=== PATIENT | male | born 1985 | race African-American/Black ===

== ENCOUNTER 2017-01-24 15:45 | Emergency (ER) | payer OTHER ==
[~2017-01-24] VITALS: Ht 172.7 cm; Wt 92.2 kg
[~2017-01-24 15:45] MED LIST: FLEXERIL10 MG PO; NAPROSYN500 MG PO
[2017-01-24 17:40] LABS: EOSINOPHIL (%) 3.2 % (0-5); EOSINOPHIL COUNT 0.2 K/uL (0-0.3); HEMATOCRIT 43.3 % (38.0-50.0); IMMATURE GRANULOCYTE (%) 0.3 % (0.0-0.7); INSTRUMENT ABS NEUTROPHIL CT 4.4 K/uL; LYMPHOCYTE COUNT 2.2 K/uL (1.0-2.8); MCH 29.6 PG (29.0-34.0); MCHC 33.7 G/DL (30.0-36.0); MCV 87.8 FL (86-99); MEAN PLAT.VOLUME 10.7 uM^3 (9.0-12.4); MONOCYTE COUNT 0.5 K/uL (0-0.8); NEUTROPHIL (%) 59.7 % (45-76); NEUTROPHIL COUNT 4.4 K/uL (1.8-6.4); PLATELET COUNT 238 K/uL (156-360); RBC DIS.WIDTH-CV 15.2 % (11.8-14.6); RBC DIS.WIDTH-SD 48.7 % (39-53); RED BLOOD COUNT 4.93 M/uL (4.00-5.50); WHITE BLOOD COUNT 7.4 K/uL (4.1-10.2)
[2017-01-24 18:03] LABS: CHLORIDE 106 mEq/L (99-109); POTASSIUM 4.6 mEq/L (3.7-5.4); SODIUM 139 mEq/L (136-147)
[2017-01-24 18:05] LABS: GLUCOSE 89 mg/dL (70-99)
[2017-01-24 18:06] LABS: ANION GAP 10 MEQ/L (2-14)
[2017-01-24 18:09] LABS: GFR ESTIMATE (CALCULATED) > 59 mL/min/
[2017-01-24 18:10] LABS: UREA NITROGEN (BUN) 16 mg/dL (9-23)
[2017-01-24] MEDS ORDERED: FLEXERIL5 MG PO (18:19)
[2017-01-24] MEDS ORDERED: MOTRIN600 MG PO (18:19)
[2017-01-24 19:01] VITALS: BP 117/65
== END 2017-01-24 19:07 | disposition home or self-care (01) ==
LOC: EME 15:45
PROVIDERS: Physician Assistant
DX: S16.1XXA Strain of muscle, fascia and tendon at neck level, initial encounter (principal); J45.909 Unspecified asthma, uncomplicated; F17.200 Nicotine dependence, unspecified, uncomplicated
CPT/HCPCS: 71020; 80048; 85025; 93005; 99281; 99283; J1885